=== PATIENT | female | born 1990 | race Caucasian/White ===

== ENCOUNTER 2023-02-02 00:17 | Inpatient (IN) ==
[2023-02-02] MEDS ORDERED: LIDOCAINE 1% LOCAL 20 ML VIAL INFIL PRN (01:28)
[2023-02-02] MEDS ORDERED: OXYTOCIN 30 UNITS/500 ML BAG IV PRN ×2 (01:28→08:13)
--- NOTE | 2023-02-02 01:34 | History & Physical Report ---
Date of Service February 02, 2023 Assessment & Plan (1) Encounter for supervision of normal in multigravida: Plan: Admit to L&D. EFM/toco, labs. Anticipate . History of Present Illness Chief Complaint: contractions Primary Care Provider: NO PCP 32yo @ 38 3/, presented with regular contractions. No leaking, no vaginal bleeding. + movement. Allergies Allergy/AdvReac Type Severity Reaction Status Date / Time No Known Allergies Allergy Verified 01/26/23 10:30 Home Medications Medication Instructions Recorded Confirmed Type prenat.vits,deb,ipx-wxbj-yxygp 1 tab PO DAILY 06/24/22 01/26/23 History ondansetron HCl 4 mg tablet 4 mg PO Q6H PRN nausea and 08/04/22 01/26/23 Rx vomiting #20 tabs Patient History Medical History History of chicken pox Surgical History S/P wisdom tooth extraction Family History (Updated 06/24/22 @ 10:55 by Lexy Romero) Grandmother (Maternal) Diabetes Sister Kidney stone Denies family history of Ovarian cancer Breast cancer Colorectal cancer Social History (Updated 06/24/22 @ 10:56 by Lexy Romero) Smoking Status: Never smoker Do You Dip or Chew Tobacco: No; Hx Alcohol Use: No Hx Substance Use: No Preferred Language: [place] Wig [place] Required: No Beliefs That Will Affect Care: None marital status: marital status details: Chad Elizabeth (32) [phone] Current Living Situation: Spouse and Family Current Living Situation Comment: lives with spouse, daughter, dog current occupational status: employed 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 Other Information That Helps Us Care for You: No Feels Safe at Home: Yes Safety Concerns: Feels Safe At This Time Review of Systems All systems reviewed & are unremarkable except as noted in HPI & below Physical Exam Physical Exam: FHT Cat 1 [place] Q 3-4 SVE 4/100/0 per RN Constitutional: WD/WN, vitals as above Respiratory: normal respiratory effort, lungs clear to auscultation no respiratory distress Cardiovascular: Rate/Rhythm: regular rate and regular rhythm Gastrointestinal (Abdomen): Inspection/Auscultation: abdomen normal to inspection Percussion/Palpation: abdomen soft; abdomen nontender Gravid. No s/s chorio or abruption. Skin: no rashes, warm and dry Psychiatric: A+Ox3, euthymic affect Results & Data Vital Signs (Past 12 Hours) Vital Signs Pulse Resp BP 02/02/23 00:33 18 02/02/23 00:32 81 106/59 L Coding Level of Care Code None Diagnoses Encounter for supervision of normal in multigravida Z34.80
[2023-02-02] MEDS: LACTATED RINGER'S 1,000 ML IV PRN ×2 (01:50→02:54)
[2023-02-02 02:00] LABS: Hematocrit (blood only) 38.2 % (37.0-47.0); Hemoglobin 13.4 g/dl (12.0-16.0); Mean Corpuscular Hemoglobin 29.8 pg (25.0-34.0); Mean Corpuscular Hgb Conc 35.1 g/dL (32.0-36.0); Mean Corpuscular Volume 85.1 fL (80.0-100.0); Mean Platelet Volume 10.4 fL (9.4-12.4); Platelet Count 263 K/uL (130-400); RDW Coefficient of Variation 12.7 % (11.5-14.5); RDW Standard Deviation 38.3 fL (36.4-46.3); Red Blood Count 4.49 M/uL (4.20-5.40); White Blood Count 11.14 K/ul (4.8-10.8)
[2023-02-02] MEDS ORDERED: ePHEDrine sulfate 50 MG/ML AMP ONE (02:02)
[2023-02-02] MEDS ORDERED: SODIUM CHLORIDE 0.9% PF INJ 10 ML VIAL ONE (02:03)
[2023-02-02] MEDS ORDERED: fentaNYL 2MCG/ML ROPIVACAINE 1.25MG/ML 100 ML BAG EPI ONE (02:03)
[2023-02-02] MEDS ORDERED: BUPIVACAINE 0.25% PF 30 ML VIAL ONE (02:03)
[2023-02-02] MEDS ORDERED: LIDOCAINE 2%/EPINEPHRINE 1:200,000 20 ML PF ONE (02:03)
[2023-02-02] MEDS ORDERED: fentaNYL citrate PF 100 MCG/2 ML VIAL ONE (02:03)
[2023-02-02] MEDS ORDERED: NALBUPHINE HCL INJ 10 MG/ML AMP IV PRN (02:13)
[2023-02-02] MEDS ORDERED: LIDOCAINE 2%/EPINEPHRINE 1:200,000 20 ML PF EPI STA (02:13)
[2023-02-02] MEDS ORDERED: NALOXONE HCL 0.4 MG/1 ML VIAL/CARP IV PRN (02:13)
[2023-02-02] MEDS ORDERED: ePHEDrine sulfate 50 MG/ML AMP IV PRN (02:13)
[2023-02-02] MEDS ORDERED: fentaNYL 2MCG/ML ROPIVACAINE 1.25MG/ML 100 ML BAG EPI PRN (02:13)
[2023-02-02] MEDS ORDERED: NALOXONE HCL 1 MG in SODIUM CHLORIDE 0.9% 1000ML 1,000 ML IV PRN (02:13)
[2023-02-02] MEDS ORDERED: SODIUM CHLORIDE 0.9% PF INJ 10 ML VIAL EPI STA (02:13)
[2023-02-02] MEDS ORDERED: BUPIVACAINE 0.25% PF 30 ML VIAL EPI STA (02:13)
[2023-02-02] MEDS ORDERED: SODIUM CHLORIDE 0.9% PF INJ 10 ML VIAL EPI PRN (02:13)
[2023-02-02] MEDS ORDERED: ROPIVACAINE 0.5% PF 5 MG/ML 20 ML VIAL EPI PRN (02:13)
[2023-02-02] MEDS ORDERED: diphenhydrAMINE 50 MG/ML VIAL IV PRN (02:13)
[2023-02-02] MEDS ORDERED: BUPIVACAINE 0.25% PF 30 ML VIAL EPI PRN (02:13)
[2023-02-02] MEDS ORDERED: fentaNYL citrate PF 100 MCG/2 ML VIAL EPI STA (02:13)
[2023-02-02] MEDS ORDERED: fentaNYL citrate PF 100 MCG/2 ML VIAL EPI PRN (02:13)
[2023-02-02] MEDS ORDERED: LIDOCAINE 2% MPF LOCAL 5 ML VIAL EPI PRN (02:13)
--- NOTE | 2023-02-02 02:13 | Anesthesiology Consultation ---
Date of Service February 02, 2023 Assessment & Plan (1) Encounter for pre-operative examination: Chart Review Chart Review: Patient NOT seen in Pre Admission Testing and Acceptable Risk for Labor Epidural Consults Requested none History Height/Weight Height: 5 ft 1 in Weight: 59.421 kg Allergies Allergy/AdvReac Type Severity Reaction Status Date / Time No Known Allergies Allergy Verified 01/26/23 10:30 Medications Home Medications Medication Instructions Recorded Confirmed Last Taken prenat.vits,deb,loe-msey-gpvob 1 tab PO DAILY 06/24/22 01/26/23 Unknown ondansetron HCl 4 mg tablet 4 mg PO Q6H PRN nausea and 08/04/22 01/26/23 Unknown vomiting #20 tabs Active Medications Generic Name Dose Route Start Last Admin Trade Name Freq PRN Reason Stop Dose Admin Lactated Ringer's 1,000 mls @ 125 mls/hr 02/02/23 01:28 02/02/23 01:50 Lr IV 02/04/23 01:27 999 mls/hr .Q8H PRN Administration L&D Protocol Protocol Past Medical History Medical History History of chicken pox Past Family History Family History Grandmother (Maternal) Diabetes Sister Kidney stone Denies family history of Ovarian cancer Breast cancer Colorectal cancer Past Surgical History Surgical History S/P wisdom tooth extraction Social History Smoking Status: Never smoker Do You Dip or Chew Tobacco: No Hx Alcohol Use: No Hx Substance Use: No Physical Exam Vital Signs Last Vital Signs Pulse 81 02/02/23 00:32 Resp 18 02/02/23 00:33 BP 106/59 L 02/02/23 00:32 Testing Laboratory Results 02/02/23 01:43
--- NOTE | 2023-02-02 03:33 | Labor Progress Brief Note ---
Date of Service February 02, 2023 Subjective Comfortable with epidural. FHT Cat 1 [place] Q 2-4 SVE 6/100/0 Anticipate . Assessment & Plan Admission and Anticipated Discharge Date Admission Date: February 02, 2023 Results & Data Vital Signs (Past 12 Hours) Vital Signs Temp Pulse Resp BP Pulse Ox 02/02/23 00:33 18 02/02/23 03:30 100 02/02/23 03:30 77 02/02/23 03:25 100 02/02/23 03:25 87 02/02/23 03:22 89 02/02/23 03:22 102/62 02/02/23 03:20 100 02/02/23 03:20 75 02/02/23 03:15 100 02/02/23 03:15 79 02/02/23 03:10 100 02/02/23 03:10 80 02/02/23 03:05 100 02/02/23 03:05 82 02/02/23 03:03 78 02/02/23 03:03 99/54 L 02/02/23 03:00 100 02/02/23 03:00 77 02/02/23 03:00 96/53 L 02/02/23 02:57 86 02/02/23 02:57 101/57 L 02/02/23 02:55 100 02/02/23 02:55 87 02/02/23 02:54 80 02/02/23 02:54 90/50 L 02/02/23 02:51 86 02/02/23 02:51 103/59 L 02/02/23 02:50 100 02/02/23 02:50 83 02/02/23 02:00 36.8 C 02/02/23 02:48 86 02/02/23 02:48 99/52 L 02/02/23 02:45 100 02/02/23 02:45 85 02/02/23 02:45 81 02/02/23 02:45 100/53 L 02/02/23 02:42 88 02/02/23 02:42 99/54 L 02/02/23 02:40 100 02/02/23 02:40 87 02/02/23 02:39 96 H 02/02/23 02:39 98/56 L 02/02/23 02:35 100 02/02/23 02:35 94 H 02/02/23 02:36 96 H 02/02/23 02:36 102/54 L 02/02/23 02:33 98 H 02/02/23 02:33 100/56 L 02/02/23 02:30 100 02/02/23 02:30 108 H 02/02/23 02:27 107 H 02/02/23 02:27 106/56 L 02/02/23 02:25 100 02/02/23 02:25 113 H 02/02/23 02:24 114 H 02/02/23 02:24 107/68 02/02/23 02:20 100 02/02/23 02:20 117 H 02/02/23 00:32 81 106/59 L Coding Level of Care Code None Diagnoses
--- NOTE | 2023-02-02 08:07 | Delivery Summary ---
Vaginal Delivery Summary Date of Service February 02, 2023 Vaginal Delivery Summary and 1st Degree LAC Vaginal Delivery Summary: Pre-delivery diagnoses: 32yo @ 38 3/, spontaneous labor Post-delivery diagnoses: same Procedure: spontaneous vaginal delivery, repair of 1st degree perineal laceration Surgeon: Kate Mohr DO Complications: none Findings: Viable male . Apgars: 8/8 . Weight pending, please see nursery records Estimated blood loss: 300ml Description of delivery: The patient progressed to complete with epidural anesthesia. She then began to push. She spontaneously vaginally delivered a viable from the cephalic presentation. The head delivered in LUCÍA position. The anterior shoulder delivered, followed by the posterior shoulder, followed by the body. The baby was placed on mother's abdomen and a spontaneous cry was heard. Delayed cord clamping was employed, and the cord was doubly clamped and cut. Cord blood was obtained. The placenta was delivered spontaneously intact with a 3-vessel cord. The uterus and vagina were swept of clots and debris. IV pitocin was given. The uterus became firm. The cervix, vagina, and perineum were inspected and a 1st degree perineal laceration was noted. Some redundant vaginal tissue. Repaired with 3-0 Vicryl in standard fashion. Excellent hemostasis was observed. The mother and baby are recovering in stable and good condition in the room. Sponge, needle and instrument counts were correct x 2. Kate Mohr DO [facility] Vaginal Delivery Charge Vaginal Delivery Codes: 79046 global code for the antepartum, delivery, and post- Delivery Type Details: and 1st Degree LAC
[2023-02-02] MEDS ORDERED: oxyCODONE/ACETAMINOPHEN 5mg/325mg TAB PO PRN (08:13)
[2023-02-02] MEDS ORDERED: DIPHTHERIA/TETANUS/PERTUSSIS Vaccine (Tdap, Age 7+yrs) 0.5mL SYR/VL IM ONE (08:13)
[2023-02-02] MEDS ORDERED: BENZOCAINE 20% AER SPR 82.5 GM CAN EXT PRN (08:13)
[2023-02-02] MEDS ORDERED: HYDROCORTISONE ACETATE 25 MG SUPP PR PRN (08:13)
[2023-02-02] MEDS ORDERED: ACETAMINOPHEN 325 MG TAB PO PRN (08:13)
[2023-02-02] MEDS ORDERED: bisacodyL 10 MG SUPP PR PRN (08:13)
--- NOTE | 2023-02-02 09:17 | Anesthesia Procedure Note ---
Date of Service February 02, 2023 Anesthesia Post Epidural Note Vital Signs Vital Signs: Temp Pulse Resp BP Pulse Ox 36.6 C 76 16 102/57 L 100 02/02/23 08:00 02/02/23 09:05 02/02/23 09:00 02/02/23 09:05 02/02/23 07:40 Pain Intensity Lower Abdomen: Pain Intensity: 0 Notes Mental Status: alert / awake / arousable and participated in evaluation Nausea / Vomiting: adequately controlled Pain: adequately controlled Airway Patency, RR, SpO2: stable & adequate BP & HR: stable & adequate Hydration State: stable & adequate Neuraxial Anesthesia: was administered and sensory block is resolving Anesthetic Complications: no major complications apparent Epidural: Removed without complications and With tip intact
[2023-02-02] MEDS: IBUPROFEN 600 MG TAB PO PRN ×3 (12:30→21:03)
[2023-02-02] MEDS: DOCUSATE SODIUM 100 MG CAP PO SCH (21:04)
[2023-02-03] MEDS: IBUPROFEN 600 MG TAB PO PRN ×2 (02:14→07:48)
[2023-02-03 06:57] LABS: Hematocrit (blood only) 30.3 % (37.0-47.0); Hemoglobin 10.4 g/dl (12.0-16.0)
[2023-02-03] MEDS: DOCUSATE SODIUM 100 MG CAP PO SCH (07:48)
[2023-02-03] MEDS ORDERED: PRENATAL VITAMIN 1 TAB PO SCH (08:00)
--- NOTE | 2023-02-03 08:14 | Obstetrical Progress Note ---
Date of Service February 03, 2023 Assessment & Plan (1) Encounter for care and examination after delivery: Day 1 status post vaginal delivery. Patient doing well. Stable for discharge if preferred. Subjective Ambulation: ambulating normally Voiding: no voiding problems Passing Gas:: Yes Diet Tolerance:: regular diet Lochia:: Moderate Feeding Type:: breast feeding Physical Exam Constitutional WD/WN, vitals as above Respiratory normal respiratory effort; no respiratory distress and no labored breathing Gastrointestinal (Abdomen) Inspection/Auscultation: abdomen normal to inspection; abdomen not distended Percussion/Palpation: abdomen soft; abdomen nontender, no guarding and abdomen not rigid Genitourinary OB Exam Abdomen: + fundal height Fundus: + firm and + relation to umbilicus (Below); not tender or not boggy Results & Data Vital Signs (Past 12 Hours) Vital Signs Temp Pulse Resp BP Pulse Ox O2 Del Method 02/03/23 04:00 36.5 C 78 16 92/58 L 96 Room Air 02/02/23 23:30 36.4 C L 75 16 99/62 L 98 Room Air
[2023-02-03] MEDS ORDERED: bisacodyL 5 MG TABEC PO SCH (20:00)
== END 2023-02-03 11:13 | disposition home or self-care (01) | DRG 807 ==
LOC: OPB 00:17 → 4S1 00:26 → 4E2 11:04